=== PATIENT | male | born 1975 | race Two or more races ===

== ENCOUNTER 2021-09-07 21:04 | Emergency (ER) | payer OTHER ==
[~2021-09-07] VITALS: Ht 165.1 cm; Wt 88.5 kg
[2021-09-08] MEDS ORDERED: KETO10TA2 PO (02:30)
[2021-09-08] MEDS ORDERED: NORFLEX100MG PO (02:30)
== END 2021-09-08 06:38 | disposition home or self-care (01) ==
LOC: ER 21:04
DX: S20.219A Contusion of unspecified front wall of thorax, initial encounter (principal); S20.20XA Contusion of thorax, unspecified, initial encounter; W19.XXXA Unspecified fall, initial encounter; Y93.89 Activity, other specified; Y92.89 Other specified places as the place of occurrence of the external cause; R07.81 Pleurodynia